=== PATIENT | female | born 1950 | race Caucasian/White ===

== ENCOUNTER 2022-03-19 09:28 | Outpatient (REF) | payer OTHER, SELFPAY ==
[2022-03-19 09:42] LABS: MANUAL DIFF FLAG NO
[2022-03-19 10:16] LABS: Basophils Absolute Auto 0.1 X10*3/uL (0.0-0.2); Basophils Percent Auto 1.1 % (0-2); Eosinophils Absolute Auto 0.3 X10*3/uL (0.0-0.4); Eosinophils Percent Auto 4.5 % (0-4); Hematocrit 38.5 % (37.0-47.0); Hemoglobin 12.3 g/dl (12.0-16.0); Imm Gran Abs Auto 0.02 X10*3/uL (0.00-0.03); Imm Gran Pct Auto 0.3 % (0.0-0.4); Lymphocytes Absolute Auto 2.2 X10*3/uL (1.2-4.9); Lymphocytes Percent Auto 34.2 % (20-40); Mean Corpuscular HGB Conc 31.9 g/dl (31.0-35.0); Mean Corpuscular Hemoglobin 29.7 pg (27.0-33.0); Mean Platelet Volume 9.3 fL (9.4-12.3); Monocytes Absolute Auto 0.6 X10*3/uL (0.1-1.2); Monocytes Percent Auto 8.9 % (2-11); Neutrophils Absolute Auto 3.3 x10*3/uL (2.0-8.3); Platelet Count 320 X10*3/uL (160-400); Red Blood Count 4.14 X10*6/uL (4.20-5.50); Red Cell Distribution Width 12.9 % (11.0-16.0); White Blood Count 6.4 X10*3/uL (4.8-10.8)
[2022-03-19 10:49] LABS: Alanine Aminotransferase 30 U/L (0-31); Albumin Level 4.4 g/dL (3.5-5.0); Alkaline Phosphatase 134 U/L (39-117); Anion Gap 10 (12-20); Aspartate Amino Transferase 19 U/L (5-31); Bilirubin Total 0.4 mg/dL (0.0-1.0); Blood Urea Nitrogen 9 mg/dL (9-16); Calcium 9.7 mg/dL (8.4-10.2); Carbon Dioxide 30 mmol/L (22-29); Chloride 107 mmol/L (96-108); Cholesterol 227 mg/dL; Estimated Glomerular Filt Rate > 60; Glucose Random 94 mg/dL (60-115); HDL Cholesterol 69 mg/dL; LDL Cholesterol Calculated 131 mg/dl; Potassium 4.9 mmol/L (3.3-5.1); Sodium 142 mmol/L (135-145); Total Protein 6.7 g/dL (6.5-8.0); Triglycerides 139 mg/dL; Uric Acid 6.2 mg/dL (2.4-5.7)
[2022-03-19 10:57] LABS: Free T4 (Free Thyroxine) 1.06 ng/dL (0.71-1.85); Thyroid Stimulating Hormone 0.31 uIU/mL (0.32-4.0); Vitamin D 25-OH Total 45.4 ng/mL (>30)
[2022-03-19 11:30] LABS: Folate 11.7 ng/mL (> or = 4.0); Vitamin B12 746 pg/mL (200-900)
[2022-03-19 11:59] LABS: Appearance Urine CLEAR; Color Urine YELLOW; Glucose Urine UA NEG (NEG); Leukocyte Esterase Urine TRACE (NEG); Nitrite Urine NEG (NEG); Urine Blood NEG (NEG); Urine Ketones NEG (NEG); Urine Protein NEG (NEG-TRACE)
[2022-03-19 13:24] LABS: RBC Urine 0-2 /HPF (0); Renal Epithelial Cells Urine 2+ /LPF
== END 2022-03-19 09:29 | disposition home or self-care (01) ==
LOC: HO.LAB 09:28
PROVIDERS: PCP Internal Medicine; Visit Provider Internal Medicine
DX: E03.9 Hypothyroidism, unspecified (principal); M10.9 Gout, unspecified; K21.9 Gastro-esophageal reflux disease without esophagitis; E78.00 Pure hypercholesterolemia, unspecified
CPT/HCPCS: 36415; 80053; 80061; 81001; 82306; 82607; 82746; 84439; 84443; 84550; 85025

== ENCOUNTER 2024-01-10 15:17 | Outpatient (AMB) | payer OTHER, SELFPAY ==
--- NOTE | 2024-01-10 15:18 | MHC.PC.OV ---
Intake Visit Reasons: Migraines Allergies acetaminophen [From Percocet] Adverse Reaction (Intermediate, Verified 01/10/24 15:19) Confusion oxycodone [From Percocet] Adverse Reaction (Intermediate, Verified 01/10/24 15:19) Confusion Medication List - Last Reconciled 01/10/24 by Phillip Sinha MD cholecalciferol (vitamin D3) 25 mcg PO DAILY esomeprazole magnesium 40 mg PO DAILY indomethacin 25 mg PO Q8H PRN levothyroxine 75 mcg PO DAILY 90 days promethazine 25 mg PO Q6H PRN 90 days simvastatin 40 mg PO DAILY sumatriptan succinate (Imitrex) 50 mg PO .QD PRN Tobacco use date assessed: 01/10/24 Dental Screening Dental Screen Date: 01/10/24 HPI Migraines HPI Details 73-year-old overweight female with GERD hypercholesterolemia hypothyroid gout comes in for follow-up through Telehealth. Patient complains of migraines and has taken Fioricet before but this time insurance is have stopped paying for them and is here for follow-up. Discussed with the patient that she has had no blood work since the last time seen and that is more than a couple of years and with her medications for thyroid cholesterol needs blood work. Otherwise she has been doing fine she complains of not being able to sleep but discussed with the patient have the blood work done [address] [place] [address] Medical History (Updated 01/10/24 @ 15:37 by Phillip Sinha MD) Hypothyroid Hypercholesterolemia GERD (gastroesophageal reflux disease) Surgical History (Updated 03/13/22 @ 11:47 by Phillip Sinha MD) Cataract Social History (Updated 03/13/22 @ 11:48 by Phillip Sinha MD) Housing: House Alcohol intake: current Patient Tobacco Use Status: Never used Tobacco e-Cigarette/Vaping Use: Never Used Second Hand Smoke Exposure: No Current occupational status: retired Cognitive needs: No Hearing needs: No Vision needs: Yes Questionnaire Thrive Questionnaire Date Thrive assessed: 03/13/22 AUDIT C Alcohol Use Questionnaire (AUDIT-C) 1. How often do you have a drink containing alcohol?: 4 or more times a week 2. How many drinks containing alcohol do you have on a typical day when you are drinking?: 1 or 2 3. How often do you have six or more drinks on one occasion?: Never Total Score: 4 RESHMA-7 AMB Questionnaire RESHMA-7 Date RESHMA - 7 assessed: 03/13/22 Source: Developed by Drs. Kale Cooper, Ellie Yarbrough, Choco Forman and colleagues, with an educational nba from [employer]. Physical exam (Primary Care) Tobacco/Smoking Status: Tobacco use Status Tobacco use date assessed 01/10/24 01/10/24 15:19 Patient Tobacco Use Status Never used Tobacco 01/10/24 15:19 e-Cigarette/Vaping Use Never Used 01/10/24 15:19 Thrive Assessment: Date of Thrive Assessment Date Thrive assessed 03/13/22 01/10/24 15:19 Telehealth Telehealth Location of provider rendering services: practice address Location of patient: address on file Patient Identification confirmed using: Name, : Yes Telehealth method: voice only (android ) Patient verbally consented to treatment: Yes Patient verbally consented to billing insurance company: Yes Patient informed of any privacy concerns related to visit: Yes Minutes spent on Phone/Video with Pt.: 25 Assessment and Plan Assessment & Plan (1) Hypothyroid: Code(s): E03.9 - Hypothyroidism, unspecified Plan: Patient was reminded about blood work for thyroid (2) Hypercholesterolemia: Code(s): E78.00 - Pure hypercholesterolemia, unspecified Plan: Avoid fried foods, chicken skin, eggs, butter margarine, pastries and meat. Be it pork or beef they have a lot of cholesterol on simvastatin patient is reminded about blood work (3) GERD (gastroesophageal reflux disease): Code(s): K21.9 - Gastro-esophageal reflux disease without esophagitis Plan: Avoid the foods that causes that usually spicy foods, tomato products, juices, coffee, soda and foods that your sensitive to. After eating do not lie down, allow 3-4 hours before in lie down. And keep the head of bed above 30 degrees to avoid the acid from going up. (4) Migraine: Code(s): G43.909 - Migraine, unspecified, not intractable, without status migrainosus Plan: Keep well hydrated, have enough sleep and keep active Orders: Orders Complete Blood Count Auto Diff Today E78.00 - Pure hypercholesterolemia, unspecified Free T4 (Free Thyroxine) Today E78.00 - Pure hypercholesterolemia, unspecified Thyroid Stimulating Hormone Today E78.00 - Pure hypercholesterolemia, unspecified Vitamin B12 and Folate Today E78.00 - Pure hypercholesterolemia, unspecified UA CC w/rflx Micro + Cult Today E78.00 - Pure hypercholesterolemia, unspecified, R30.0 - Dysuria Comprehensive Met. Panel Today E78.00 - Pure hypercholesterolemia, unspecified Vitamin D 25-OH Total Today E78.00 - Pure hypercholesterolemia, unspecified Lipid Panel Today E78.00 - Pure hypercholesterolemia, unspecified Medications: New sumatriptan succinate (Imitrex) do not exceed 4 doses per 24 hrs 50 mg PO .QD PRN 30 tabs 3RF migraine headache G43.909 - Migraine, unspecified, not intractable, without status migrainosus Coding Level of Care Code Tele Est Pt Level 4 (76256) Diagnoses Hypothyroid E03.9 Hypercholesterolemia E78.00 GERD (gastroesophageal reflux disease) K21.9 Migraine G43.909
== END 2024-01-10 16:31 | disposition home or self-care (01) ==
LOC: HO.HMGH 15:17
PROVIDERS: PCP Internal Medicine; Visit Provider Internal Medicine
DX: E03.9 Hypothyroidism, unspecified (principal); E78.00 Pure hypercholesterolemia, unspecified; K21.9 Gastro-esophageal reflux disease without esophagitis; G43.909 Migraine, unspecified, not intractable, without status migrainosus
CPT/HCPCS: 99214

== ENCOUNTER 2024-01-14 08:00 | Outpatient (REF) | payer OTHER, SELFPAY ==
[2024-01-14 08:20] LABS: MANUAL DIFF FLAG NO
[2024-01-14 08:29] LABS: Basophils Percent Auto 0.7 % (0-2); Eosinophils Absolute Auto 0.3 X10*3/uL (0.0-0.4); Eosinophils Percent Auto 4.6 % (0-4); Hematocrit 39.7 % (37.0-47.0); Hemoglobin 13.2 g/dl (12.0-16.0); Imm Gran Abs Auto 0.03 X10*3/uL (0.00-0.03); Imm Gran Pct Auto 0.5 % (0.0-0.4); Lymphocytes Absolute Auto 2.3 X10*3/uL (1.2-4.9); Lymphocytes Percent Auto 38.1 % (20-40); Mean Corpuscular HGB Conc 33.2 g/dl (31.0-35.0); Mean Corpuscular Hemoglobin 31.1 pg (27.0-33.0); Mean Corpuscular Volume 93.6 fL (80.0-98.0); Mean Platelet Volume 8.5 fL (9.4-12.3); Monocytes Absolute Auto 0.5 X10*3/uL (0.1-1.2); Monocytes Percent Auto 8.1 % (2-11); Neutrophils Absolute Auto 2.9 x10*3/uL (2.0-8.3); Platelet Count 325 X10*3/uL (160-400); Red Blood Count 4.24 X10*6/uL (4.20-5.50); Red Cell Distribution Width 12.8 % (11.0-16.0); White Blood Count 6.1 X10*3/uL (4.8-10.8)
[2024-01-14 09:12] LABS: Alanine Aminotransferase 13 U/L (0-31); Albumin Level 4.6 g/dL (3.5-5.0); Alkaline Phosphatase 111 U/L (39-117); Anion Gap 13 (12-20); Aspartate Amino Transferase 15 U/L (5-31); Bilirubin Total 0.5 mg/dL (0.0-1.0); Blood Urea Nitrogen 10 mg/dL (9-16); Calcium 9.8 mg/dL (8.4-10.2); Carbon Dioxide 30 mmol/L (22-29); Chloride 105 mmol/L (96-108); Cholesterol 239 mg/dL (<200); Estimated Glomerular Filt Rate > 60; Glucose Random 98 mg/dL (60-115); HDL Cholesterol 93 mg/dL (>40); LDL Cholesterol Calculated 127 mg/dL (<100); Potassium 4.5 mmol/L (3.3-5.1); Sodium 143 mmol/L (135-145); Total Protein 7.1 g/dL (6.5-8.0); Triglycerides 95 mg/dL (<150)
[2024-01-14 09:20] LABS: Free T4 (Free Thyroxine) 0.87 ng/dL (0.71-1.85); Vitamin D 25-OH Total 46.7 ng/mL (>30)
[2024-01-14 09:43] LABS: Appearance Urine Clear; Color Urine Yellow; Glucose Urine UA Negative (Negative); Leukocyte Esterase Urine Trace (Negative); Nitrite Urine Negative (Negative); PH 5.5 (5.0-9.0); Specific Gravity - Urine 1.015 (1.005-1.025); UMIC TRIGGER UACC YES; Urine Blood Trace (Negative); Urine Ketones Negative (Negative); Urine Protein Negative (Neg-Trace)
[2024-01-14 09:49] LABS: Bacteria Urine None Seen (None Seen); Hyaline Casts Urine 0-2 /LPF (0-2); RBC Urine 0-2 /HPF (0-2); Squamous Epithelial Cell Urine 0-2 /HPF (0-2); WBC Urine 0-5 /HPF (0-5)
[2024-01-14 11:12] LABS: Vitamin B12 521 pg/mL (200-900)
== END 2024-01-14 08:01 | disposition home or self-care (01) ==
LOC: HO.LAB 08:00
PROVIDERS: PCP Internal Medicine; Visit Provider Internal Medicine
DX: E78.00 Pure hypercholesterolemia, unspecified (principal)
CPT/HCPCS: 36415; 80053; 80061; 81001; 82306; 82607; 82746; 84439; 84443; 85025

== ENCOUNTER 2024-04-29 08:02 | Outpatient (AMB) | payer OTHER, SELFPAY ==
[2024-04-29 08:15] VITALS: BP 130/78; PULSE 68; O2SAT 98; BMI 25.9
--- NOTE | 2024-04-29 08:15 | A.OFFPC_ITS ---
Vital Signs 04/29/24 08:15 Height 4 ft 10 in Weight 124 lb 0.1 oz BMI 25.9 BP 130/78 Blood Pressure Location Lt brachial Position Sitting Pulse 68 Pulse Source Pulse Oximeter Pulse Oximetry (%) 98 Oxygen Delivery Method Room Air Intake Visit Reasons: medication follow up [employer] Required: No Allergies acetaminophen [From Percocet] Adverse Reaction (Intermediate, Verified 04/29/24 08:15) Confusion oxycodone [From Percocet] Adverse Reaction (Intermediate, Verified 04/29/24 08:15) Confusion Medication List - Last Reconciled 04/29/24 by Phillip Sinha MD cholecalciferol (vitamin D3) 25 mcg PO DAILY esomeprazole magnesium 40 mg PO DAILY indomethacin 25 mg PO Q8H PRN levothyroxine 75 mcg PO DAILY 90 days promethazine 25 mg PO Q6H PRN 90 days simvastatin 40 mg PO DAILY Tobacco use date assessed: 01/10/24 Fall risk assessment: No Falls in past year Last assessed Fall Risk: 04/29/24 Dental Screening Dental Screen Date: 04/29/24 Did you have a dental visit in the last 12 months?: No Did you have a dental problem in the last 6 months where you did not have access to dental care?: No HPI medication follow up HPI Details 73-year-old female with hypothyroid hype rcholesterolemia GERD migraine coming in for follow-up. Last seen in 01/22/2024. [facility] But declined mammogram. Noted weight loss [facility] Medical History (Updated 01/10/24 @ 15:37 by Phillip Sinha MD) Hypothyroid Hypercholesterolemia GERD (gastroesophageal reflux disease) Surgical History (Updated 03/13/22 @ 11:47 by Phillip Sinha MD) Cataract Social History (Updated 03/13/22 @ 11:48 by Phillip Sniha MD) Housing: House Alcohol intake: current Patient Tobacco Use Status: Never used Tobacco e-Cigarette/Vaping Use: Never Used Second Hand Smoke Exposure: No Current occupational status: retired Cognitive needs: No Hearing needs: No Vision needs: Yes Questionnaire PHQ-9 Over the last 2 weeks, how often have you been bothered by any of the following problems? 1. Little interest or pleasure in doing things: not at all 2. Feeling down, depressed, or hopeless: not at all 3. Trouble falling or staying asleep, or sleeping too much: not at all 4. Feeling tired or having little energy: not at all 5. Poor appetite or overeating: not at all 6. Feeling bad about yourself - or that you are a failure or have let yourself or your family down: not at all 7. Trouble concentrating on things, such as reading the newspaper or watching television: not at all 8. Moving or speaking so slowly that other people could have noticed. Or the opposite - being so fidgety or restless that you have been moving around a lot more than usual: not at all 9. Thoughts that you would be better off or of hurting yourself in some way: not at all Total score: 0 Depression Screening Interpretation: Negative Depression Screening Done: Yes 59432 - PHQ-9 Billing: Yes Source: Developed by Drs. Kale Cooper, Ellie Yarbrough, Choco Forman and colleagues, with an educational nba from [employer]. Thrive Questionnaire Date Thrive assessed: 04/29/24 I am a: Patient What is your living situation today?: I have a steady place to live Within the past 12 months, did the food you bought not last and you didn't have the money to get more?: Never true Within the past 12 months, did you worry whether your food would run out before you got money to buy more?: Never true Do you have trouble paying for medicines?: No Do you have trouble getting transportation to medical appointments?: No Do you have trouble paying your heating and electricity bill?: No Do you have trouble taking care of your child, family member or friend?: No Do you have trouble with day-to-day activities such as bathing, preparing meals, shopping, managing finances, etc.?: No Are you currently unemployed and looking for a job?: No Are you interested in more education?: No Please select the resources that you would like help with: None Currently or been in a relationship where the following occur: no concerns reported THRIVE Score: 0 AUDIT C Alcohol Use Questionnaire (AUDIT-C) 1. How often do you have a drink containing alcohol?: 4 or more times a week 2. How many drinks containing alcohol do you have on a typical day when you are drinking?: 1 or 2 3. How often do you have six or more drinks on one occasion?: Never Total Score: 4 RESHMA-7 AMB Questionnaire RESHMA-7 Date RESHMA - 7 assessed: 04/29/24 Feeling nervous, anxious, or on edge: 0 = Not at all Not being able to stop or control worryin = Not at all Worrying too much about different things: 0 = Not at all Trouble relaxin = Not at all Being so restless that it is hard to sit still: 0 = Not at all Becoming easily annoyed or irritable: 0 = Not at all Feeling afraid as if something awful might happen: 0 = Not at all Total RESHMA-7 score (0-4 normal; 5-9 mild; 10-14 moderate; 15-21 severe): 0 Source: Developed by Drs. Kale Cooper, Ellie Yarbrough, Choco Forman and colleagues, with an educational nba from [employer]. RESHMA-7 Assessment Billing RESHMA-7 Assessment Tool: RESHMA-7 Assessment 02734 Physical exam (Primary Care) Vital Signs: Last Vital Signs Pulse 68 04/29/24 08:15 BP 130/78 04/29/24 08:15 Pulse Ox 98 04/29/24 08:15 Oxygen Delivery Method Room Air 04/29/24 08:15 BMI result Body Mass Index 25.9 Tobacco/Smoking Status: Tobacco use Status Tobacco use date assessed 01/10/24 04/29/24 08:16 Patient Tobacco Use Status Never used Tobacco 04/29/24 08:16 e-Cigarette/Vaping Use Never Used 04/29/24 08:16 PHQ-9: PHQ-9 Score PHQ-9: Total score 0 04/29/24 08:26 Depression Screening Interpretation: Negative Thrive Assessment: Date of Thrive Assessment Date Thrive assessed 04/29/24 04/29/24 08:16 Currently or been in a relationship where the following occur: no concerns reported Const General: alert; No acute distress Eyes Conjunctivae: conjunctivae normal Resp Auscultation: clear to auscultation bilaterally Cardio Rate: regular rate Rhythm: regular rhythm GI Inspection: Yes normal to inspection Extrem General: Yes normal to inspection and No edema Assessment and Plan Assessment & Plan (1) GERD (gastroesophageal reflux disease): Code(s): K21.9 - Gastro-esophageal reflux disease without esophagitis Plan: Avoid the foods that causes that usually spicy foods, tomato products, juices, coffee, soda and foods that your sensitive to. After eating do not lie down, allow 3-4 hours before in lie down. And keep the head of bed above 30 degrees to avoid the acid from going up. Presently on Nexium (2) Hypercholesterolemia: Code(s): E78.00 - Pure hypercholesterolemia, unspecified Plan: Avoid fried foods, chicken skin, eggs, butter margarine, pastries and meat. Be it pork or beef they have a lot of cholesterol on simvastatin 40 mg once a day noted weight loss LDL goal of less than 130 and triglyceride of less than 150. (3) Hypothyroid: Code(s): E03.9 - Hypothyroidism, unspecified Plan: Continue with thyroid medication 75 mcg once a day 01/22/2024 last blood work (4) Gout: Code(s): M10.9 - Gout, unspecified Plan: Low purine diet keep well hydrated on indomethacin 25 mg 3 times a day as needed (5) Migraine: Code(s): G43.909 - Migraine, unspecified, not intractable, without status migrainosus Plan: Stable. Patient is advised to eat healthy, keep well hydrated, keep active and have adequate sleep. Medications: New simvastatin 40 mg PO DAILY 90 tabs 1RF E78.00 - Pure hypercholesterolemia, unspecified [id number] 50-325-40 mg 1 tab PO Q6H PRN 10 tabs 0RF pain G43.909 - Migraine, unspecified, not intractable, without status migrainosus Coding Level of Care Code Est Pt Level 4 (29617) Diagnoses GERD (gastroesophageal reflux disease) K21.9 Hypercholesterolemia E78.00 Hypothyroid E03.9 Gout M10.9 Migraine G43.909 Additional Codes RESHMA-7 Assessment Billing - RESHMA-7 Assessment Tool: RESHMA-7 Assessment 00956 ([id number])
== END 2024-04-29 11:21 | disposition home or self-care (01) ==
PROVIDERS: PCP Internal Medicine; Visit Provider Internal Medicine
DX: K21.9 Gastro-esophageal reflux disease without esophagitis (principal); E78.00 Pure hypercholesterolemia, unspecified; E03.9 Hypothyroidism, unspecified; M10.9 Gout, unspecified; G43.909 Migraine, unspecified, not intractable, without status migrainosus
CPT/HCPCS: 99214

== ENCOUNTER 2025-10-19 08:50 | Outpatient (AMB) | payer OTHER, MEDICAID, SELFPAY ==
--- NOTE | 2025-10-19 09:01 | A.OFFPC_ITS ---
Vital Signs 10/19/25 09:02 Height 4 ft 10 in Weight 133 lb 4 oz BMI 27.8 BP 128/72 Blood Pressure Location Lt brachial Position Sitting Pulse 70 Pulse Source Pulse Oximeter Temp 96.9 F Temp Source Temporal Artery Scan Pulse Oximetry (%) 97 Oxygen Delivery Method Room Air Intake Visit Reasons: annual exam Intake Note: Patient is here today for a physical. 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: No Dynamite Shooter: Not Required per policy Accompanied by: Self / Same As Patient Allergies acetaminophen (From Percocet) Adverse Reaction (Intermediate, Verified 10/19/25 09:02) Confusion oxycodone (From Percocet) Adverse Reaction (Intermediate, Verified 10/19/25 09:02) Confusion Medication List - Last Reconciled 10/19/25 by Phillip Sinha MD uvwlbofgec-tvwhgzfcjvnay-scix 50-325-40 mg 1 tab PO Q6H PRN cholecalciferol (vitamin D3) 25 mcg PO DAILY esomeprazole magnesium 40 mg PO DAILY indomethacin 25 mg PO Q8H PRN levothyroxine 75 mcg PO DAILY 90 days promethazine 25 mg PO Q6H PRN 90 days simvastatin 40 mg PO DAILY Tobacco use date assessed: 10/19/25 Fall risk assessment: No Falls in past year Last assessed Fall Risk: 10/19/25 Dental Screening Dental Screen Date: 10/19/25 Did you have a dental visit in the last 12 months?: No Did you have a dental problem in the last 6 months where you did not have access to dental care?: No Was dental information given to patient?: No (No teeth) HPI HPI Comments History of Present Illness Details History of Present Illness The patient is a 75-year-old female presenting for an annual physical exam. Her last visit was in April of the previous year. Her medical history is significant for gastroesophageal reflux disease, hypothyroidism, hypercholesterolemia, gout, and migraines. The patient is overweight and reports a 9-pound weight gain since her last visit, weighing 124 pounds last year. Regarding her feet, the patient reports pain, particularly in one foot, and has a history of surgery in [place] for hammer toes where her toes were crawling. She states that indomethacin no longer works for her foot pain, which she believes is due to the deformity. She has a history of gout, which previously presented with significant swelling in one foot. The patient's last blood work was last year and showed normal blood sugar, liver function, and high HDL cholesterol. Her current medications include vitamin D, esomeprazole (Nexium), indomethacin as needed for pain, promethazine as needed for nausea, simvastatin 40 mg for cholesterol, levothyroxine 75 mcg for her thyroid, and butalbital for migraines. She reports no heartburn with esomeprazole and takes promethazine and butalbital infrequently. She has a history of confusion with oxycodone. For health maintenance, her last FIT test for colon cancer screening was in 2021, and she declines mammograms. Her last eye exam was five to six years ago after cataract surgery. She reports she is due for a tetanus shot, with the last one in 2012, and has not had pneumonia or flu vaccines. The patient reports difficulty sleeping, often getting only two hours a night, and sometimes uses Benadryl to help her sleep. She wakes up a few times a night to urinate, which she attributes to drinking a lot of water. Health Maintenance - Screening: Last FIT test was in 2021; a Cologuard test will be ordered to be sent to her home. - Screening: Patient declined a mammogra m. - Vaccinations: Discussed flu vaccine (d eclined), shingles vaccine (will consider), and noted she is due for tetanus and pneumonia shots. - Labs: A comprehensive blood panel was ordered, including a complete blood count, kidney and liver function tests, blood sugar, thyroid levels, cholesterol, vitamin B12, and vitamin D. - Eye Exam: Advised that an eye exam is recommended every couple of years; patient's last exam was 5-6 years ago. - Lifestyle: Advised on the importance o f hydration, healthy eating, and a daily routine of exercise. - Diet: Recommended a low-purine diet fo r gout. - Alcohol: Counseled on new, stricter gu idelines for alcohol consumption, noting a link between alcohol and memory issues. - Sleep Hygiene: Advised aiming for 7 ho urs of sleep per night and to limit fluid intake a couple of hours before bed to avoid nocturia. Social History - Alcohol Use: Reports drinking one beer every other night or when she feels like it, such as while watching a movie. - Tobacco Use: Denies ever smoking cigar ettes. - Recreational Drugs: Denies use of recr eational drugs. - Exercise: Reports being busy with work all day rather than having a formal exercise routine. - Sleep: Reports not sleeping much, alison bojorquez getting only two hours a night, and states she cannot get seven hours of sleep. Results - Labs (from last year): Blood sugar was normal. - Labs (from last year): Liver function was normal. - Labs (from last year): Cholesterol hector el showed high HDL. - Screening Tests: Last FIT test was in 2021. [facility] Medical History (Updated 10/19/25 @ 09:33 by Phillip Sinha MD) Hypothyroid Hypercholesterolemia GERD (gastroesophageal reflux disease) Surgical History (Updated 10/19/25 @ 09:06 by January Mohamud Cristofer) History of tooth extraction Cataract Social History (Updated 10/19/25 @ 09:23 by Phlilip Sinha MD) Housing: House Alcohol intake: current Comment: QOD 1 beer Patient Tobacco Use Status: Never used Tobacco e-Cigarette/Vaping Use: Never Used Second Hand Smoke Exposure: No service: No Current occupational status: retired Cognitive needs: No Hearing needs: No Vision needs: Yes Questionnaire PHQ-9 Over the last 2 weeks, how often have you been bothered by any of the following problems? 1. Little interest or pleasure in doing things: not at all 2. Feeling down, depressed, or hopeless: not at all 3. Trouble falling or staying asleep, or sleeping too much: not at all 4. Feeling tired or having little energy: not at all 5. Poor appetite or overeating: not at all 6. Feeling bad about yourself - or that you are a failure or have let yourself or your family down: not at all 7. Trouble concentrating on things, such as reading the newspaper or watching television: not at all 8. Moving or speaking so slowly that other people could have noticed. Or the opposite - being so fidgety or restless that you have been moving around a lot more than usual: not at all 9. Thoughts that you would be better off or of hurting yourself in some way: not at all Total score: 0 Depression Screening Interpretation: Negative Depression Screening Done: Yes Source: Developed by Drs. Kale Cooper, Ellie Yarbrough, Choco Forman and colleagues, with an educational nba from [employer]. Thrive Questionnaire Date Thrive assessed: 10/19/25 I am a: Patient What is your living situation today?: I have a steady place to live Within the past 12 months, did the food you bought not last and you didn't have the money to get more?: I choose not to answer this question Within the past 12 months, did you worry whether your food would run out before you got money to buy more?: I choose not to answer this question Do you have trouble paying for medicines?: No Do you have trouble getting transportation to medical appointments?: No Do you have trouble paying your heating and electricity bill?: No Do you have trouble taking care of your child, family member or friend?: No Do you have trouble with day-to-day activities such as bathing, preparing meals, shopping, managing finances, etc.?: No Are you currently unemployed and looking for a job?: No Are you interested in more education?: No Please select the resources that you would like help with: None Currently or been in a relationship where the following occur: I choose not to answer THRIVE Score: 0 AUDIT C Alcohol Use Questionnaire (AUDIT-C) 1. How often do you have a drink containing alcohol?: Never Total Score: 0 RESHMA-7 AMB Questionnaire RESHMA-7 Date RESHMA - 7 assessed: 10/19/25 Feeling nervous, anxious, or on edge: 0 = Not at all Not being able to stop or control worryin = Not at all Worrying too much about different things: 0 = Not at all Trouble relaxin = Not at all Being so restless that it is hard to sit still: 0 = Not at all Becoming easily annoyed or irritable: 0 = Not at all Feeling afraid as if something awful might happen: 0 = Not at all Total RESHMA-7 score (0-4 normal; 5-9 mild; 10-14 moderate; 15-21 severe): 0 Source: Developed by Drs. Kale Cooper, Ellie Yarbrough, Choco Forman and colleagues, with an educational nba from [employer]. Review of Systems Narrative Review of Systems - General: Reports weight gain. - Eyes: Vision is okay, but requires glasses for up-close viewing. - Ears: Hearing is fine. - Cardiovascular: Denies chest pain or discomfort, but reports occasional funny feeling in the chest associated with nausea. - Respiratory: Denies coughing or waking up short of breath. - Gastrointestinal: Denies heartburn on esomeprazole, nausea, vomiting, problems with swallowing, constipation, blood in stools, or black stools. - Genitourinary: Denies problems with urination but reports nocturia due to high water intake. - Musculoskeletal: Reports pain in both feet, especially one, which is currently hurting. - Neurological: Reports a history of migraines. - Neurological: Denies passing out or feeling dizzy. - Constitutional: Denies fever. Const Denies poor appetite and Denies weakness Eyes Denies no additional complaints ENT Reports Normal hearing present, Denies dizziness, Denies nasal congestion, Denies tinnitus and Denies sore throat Card Denies chest pain, Denies syncope, Denies rapid heart rate and Denies dyspnea Resp Denies cough and Denies dyspnea GI Denies change in stool character, Reports constipation, Denies diarrhea, Denies nausea and Denies vomiting Denies urinary frequency, Denies difficulty voiding and Denies dysuria Neuro Reports Normal hearing present, Denies confusion, Denies dizziness, Denies syncope and Denies weakness Psych Denies confusion Physical exam (Primary Care) Vital Signs: Last Vital Signs Temp 96.9 F 10/19/25 09:02 Pulse 70 10/19/25 09:02 BP 128/72 10/19/25 09:02 Pulse Ox 97 10/19/25 09:02 Oxygen Delivery Method Room Air 10/19/25 09:02 BMI result Body Mass Index 27.8 Tobacco/Smoking Status: Tobacco use Status Tobacco use date assessed 10/19/25 10/19/25 09:07 Patient Tobacco Use Status Never used Tobacco 10/19/25 09:23 e-Cigarette/Vaping Use Never Used 10/19/25 09:23 PHQ-9: PHQ-9 Score PHQ-9: Total score 0 10/19/25 09:13 Depression Screening Interpretation: Negative Thrive Assessment: Date of Thrive Assessment Date Thrive assessed 10/19/25 10/19/25 09:07 Currently or been in a relationship where the following occur: I choose not to answer Narrative Physical Exam General: Cooperative, healthy appearing, comfortable, no acute distress and well developed Orientation: Patient oriented x3 Limitations: No limitations Head: Normal to inspection Ears: Hearing grossly normal bilaterally, right ear blocked with earwax Nose: Normal external nose present Face and sinus: Normal facial exam Eyes: Appearance normal, both eyes and all related structures Neck: Normal visual inspection and Yes full ROM Respiratory: Normal respiratory effort and able to speak in complete sentences. Clear to auscultation bilaterally Cardiovascular: Regular rate and rhythm. Normal S1 and S2 GI: Normal to inspection. Soft to palpation and nontender Skin: No rashes or lesions noted Neuro: Patient oriented x3 Extremities: Normal to inspection, both feet have pain, especially the toes due to previous surgery for hammer toe deformity Const General: No confusion Orientation/consciousness: No confusion HENMT Other: R ear impacted cerumen, L TM intact Head: Yes normocephalic Ears: external ears normal Face and sinus: Yes normal facial exam Mouth: moist mucous membranes Throat: Yes tonsils normal Eyes Conjunctivae: conjunctivae normal Pupils: Equal, round and reactive pupils present and Pupil accommodation reflex normal Direct Ophthalmoscopy: normal light reflex Neck Neck: No lymphadenopathy Thyroid: Thyroid normal Chest Chest palpation & inspection: normal inspection of the chest Resp Effort & Inspection: normal respiratory effort and no audible wheezes Auscultation: clear to auscultation bilaterally, no crackles, no wheezes and lung sounds not diminished Cardio Rate: regular rate Rhythm: regular rhythm Peripheral pulses: radial pulses present and dorsalis pedis present GI Palpation (GI): no masses Auscultation: normal bowel sounds and normoactive bowel sounds Rectal Exam - Female: deferred Skin General skin exam: no rashes or lesions noted Rashes: no rashes Neuro General: No confusion Cranial nerves: Yes Equal, round and reactive pupils present and Yes Normal hearing present Cognition (Neuro): normal cognition Gait exam (Neuro): Normal gait present Motor exam (neuro): 5/5 motor strength present throughout Deep tendon reflexes (DTR's): Right brachioradialis reflex intensity grade: 2+, Left brachioradialis reflex intensity grade: 2+, Right patellar reflex intensity grade: 2+ and Left patellar reflex intensity grade: 2+ Extrem General: No edema Coding Level of Care Code Est Pt Prev Care >65y(63401) Diagnoses Annual physical exam Z00.00 Overweight (BMI 25.0-29.9) E66.3 Hypothyroid E03.9 GERD (gastroesophageal reflux disease) K21.9 Gout M10.9 Migraine G43.909 Hypercholesterolemia E78.00 Foot pain, bilateral M79.671; M79.672 Colon cancer screening Z12.11 Mammogram declined Z53.20 Impacted cerumen of right ear H61.21 Assessment & Plan Assessment & Plan (1) Annual physical exam: Code(s): Z00.00 - Encounter for general adult medical examination without abnormal findings Category: Medical Plan: Patient is advised to eat healthy, keep well hydrated, keep active and have adequate sleep. (2) Overweight (BMI 25.0-29.9): Code(s): E66.3 - Overweight Category: Medical Plan: Diet and exercise (3) Hypothyroid: Code(s): E03.9 - Hypothyroidism, unspecified Category: Medical Plan: Continue with thyroid medication but patient requires blood work (4) GERD (gastroesophageal reflux disease): Code(s): K21.9 - Gastro-esophageal reflux disease without esophagitis Category: Medical Plan: Avoid the foods that causes that usually spicy foods, tomato products, juices, coffee, soda and foods that your sensitive to. After eating do not lie down, allow 3-4 hours before in lie down. And keep the head of bed above 30 degrees to avoid the acid from going up. (5) Gout: Code(s): M10.9 - Gout, unspecified Category: Medical Plan: Low purine diet as well as keep well hydrated (6) Migraine: Code(s): G43.909 - Migraine, unspecified, not intractable, without status migrainosus Category: Medical Plan: Patient is advised to eat healthy, keep well hydrated, keep active and have adequate sleep. (7) Hypercholesterolemia: Code(s): E78.00 - Pure hypercholesterolemia, unspecified Category: Medical Plan: Avoid fried foods, chicken skin, eggs, butter margarine, pastries and meat. Be it pork or beef they have a lot of cholesterol on simvastatin 40 mg once a day LDL goal of less than 130 and triglyceride of less than 150. (8) Foot pain, bilateral: Code(s): M79.671 - Pain in right foot; M79.672 - Pain in left foot Category: Medical (9) Colon cancer screening: Code(s): Z12.11 - Encounter for screening for malignant neoplasm of colon Category: Medical (10) Mammogram declined: Code(s): Z53.20 - Procedure and treatment not carried out because of patient's decision for unspecified reasons Category: Medical (11) Impacted cerumen of right ear: Code(s): H61.21 - Impacted cerumen, right ear Category: Medical Plan Plan Patient was informed and verbally consented to the use of an ambient scribe for clinic note documentation during this visit. 1. Annual Physical Examination The patient presents for a wellness visit. A comprehensive blood panel including CBC, CMP, lipid panel, thyroid function tests, vitamin B12, and vitamin D has been ordered. A Cologuard test will be sent to the patient's home for colon cancer screening. Vaccinations for tetanus, pneumonia, influenza, and shingles were discussed; the patient declined the flu shot and will consider the shingles vaccine. The patient declined a mammogram. Counseling was provided on diet, exercise, hydration, sleep hygiene, and new alcohol consumption guidelines. 2. Overweight The patient has gained 9 pounds since her last visit. She was encouraged to incorporate a daily exercise routine and was counseled on the importance of healthy eating and hydration for wellness and weight management. 3. Hypothyroidism The patient will continue her current thyroid medication. Thyroid function will be assessed with the ordered blood work. 4. Hypercholesterolemia The patient will continue simvastatin 40 mg daily, with a goal LDL of less than 130 mg/dL and triglycerides of less than 150 mg/dL. Her cholesterol levels will be monitored via the ordered blood work. 5. Gastroesophageal Reflux Disease The patient is well-controlled on esomeprazole and denies heartburn. She will continue her current medication. 6. Gout The patient was counseled to follow a low-purine diet and maintain good hydration to help manage her gout. 7. Foot Deformity The patient reports foot pain secondary to a toe deformity (hammer toe), with a history of prior surgery. A referral to podiatry will be placed to evaluate her condition and discuss treatment options. 8. Impacted Cerumen The patient has impacted cerumen in the right ear. It was recommended she use ppkr-gsc-hcoyznf ear drops, such as Debrox, to soften the earwax. If her symptoms become problematic, she should return for ear irrigation. Discussion Notes I discussed the annual physical exam findings with the patient. We reviewed her weight gain and the importance of establishing a daily exercise routine in addition to her work activities. I placed an order for comprehensive blood work to monitor her chronic conditions, including hypothyroidism and hypercholesterolemia, and confirmed she could have it drawn today. We discussed her foot pain and toe deformity, and I will be placing a referral to podiatry for further evaluation. I noted impacted cerumen in her right ear and recommended pjjh-jgl-rfpykqg Debrox drops to soften the wax, advising her to return for flushing if it becomes bothersome. We discussed health maintenance, and I ordered a Cologuard test to be sent to her home since her last screening was in 2021. She declined a mammogram. We also reviewed her vaccine status, and I informed her she is due for tetanus and pneumonia shots and discussed the availability of the flu and shingles vaccines. I counseled her on improving sleep hygiene by aiming for 7 hours of sleep and limiting fluids before bed. I also educated her on the new, stricter guidelines for alcohol consumption. I assured her that her prescriptions are likely on automatic refill at her pharmacy, and I will follow up with her if any significant abnormalities are found in her blood work. Patient Instructions - You can go to the lab to get your blood work done today. - Continue taking your current medications as prescribed, including those for thyroid, cholesterol, and reflux. - A Cologuard kit for colon cancer screening will be mailed to your house. - For your foot problem, we will send a referral to a non destructive testing specialist (roller mill operator) to see how they can help. - For the wax buildup in your right ear, you can buy qicc-opf-aritnhg ear drops like Debrox to help soften it. - If your ear becomes a problem and you have trouble hearing, please let us know. - Try to set aside time each day for exercise, such as walking. - Continue to drink plenty of water and eat a healthy diet. - For your gout, try to eat a low-purine diet. - Try to get about 7 hours of sleep each night and avoid drinking liquids for a couple of hours before you go to bed. - We discussed vaccines that you are due for, including tetanus and pneumonia, and also the optional flu and shingles shots. - We will call you if there are any major issues with your lab results. Orders: Orders Comprehensive Met. Panel Today E03.9 - Hypothyroidism, unspecified Thyroid Stimulating Hormone Today E03.9 - Hypothyroidism, unspecified UA CC w/rflx Micro + Cult Today E03.9 - Hypothyroidism, unspecified, R30.0 - Dysuria Complete Blood Count Auto Diff Today E03.9 - Hypothyroidism, unspecified Free T4 (Free Thyroxine) Today E03.9 - Hypothyroidism, unspecified Vitamin B12 and Folate Today E03.9 - Hypothyroidism, unspecified Vitamin D 25-OH Total Today E03.9 - Hypothyroidism, unspecified Lipid Panel Today E03.9 - Hypothyroidism, unspecified, E78.00 - Pure hypercholesterolemia, unspecified Magnesium Today E03.9 - Hypothyroidism, unspecified Referrals Podiatry Referral M79.671 - Pain in right foot, M79.672 - Pain in left foot Cologuard Test Z12.11 - Encounter for screening for malignant neoplasm of colon
[2025-10-19 09:02] VITALS: BP 128/72; PULSE 70; TEMP 36.1; O2SAT 97; BMI 27.8
--- OUTSIDE RECORDS SUMMARY | 2025-10-19 09:41 | XMS_ITS | Patient Health Record ---
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
== END 2025-10-19 10:05 | disposition home or self-care (01) ==
LOC: HO.HMCH 08:51
PROVIDERS: PCP Internal Medicine; Visit Provider Internal Medicine
DX: Z00.00 Encounter for general adult medical examination without abnormal findings (principal); E66.3 Overweight; E03.9 Hypothyroidism, unspecified; K21.9 Gastro-esophageal reflux disease without esophagitis; M10.9 Gout, unspecified; G43.909 Migraine, unspecified, not intractable, without status migrainosus; E78.00 Pure hypercholesterolemia, unspecified; M79.671 Pain in right foot; M79.672 Pain in left foot; Z12.11 Encounter for screening for malignant neoplasm of colon; Z53.20 Procedure and treatment not carried out because of patient's decision for unspecified reasons; H61.21 Impacted cerumen, right ear

== ENCOUNTER 2025-10-19 08:50 | Outpatient (REF) | payer OTHER, MEDICAID, SELFPAY ==
[2025-10-19 10:00] LABS: MANUAL DIFF FLAG NO
[2025-10-19 10:21] LABS: Hematocrit 37.5 % (37.0-47.0); Hemoglobin 12.1 g/dl (12.0-16.0); Imm Gran Abs Auto 0.04 X10*3/uL (0.00-0.03); Imm Gran Pct Auto 0.8 % (0.0-0.4); Lymphocytes Absolute Auto 1.5 X10*3/uL (1.2-4.9); Mean Corpuscular HGB Conc 32.3 g/dl (31.0-35.0); Mean Corpuscular Hemoglobin 29.6 pg (27.0-33.0); Mean Corpuscular Volume 91.7 fL (80.0-98.0); NRBC Abs Auto 0.000 X10*3/uL (0.0-0.012); NRBC Pct Auto 0.0 /100WBC (0.0-0.2); Platelet Count 306 X10*3/uL (160-400); Red Blood Count 4.09 X10*6/uL (4.20-5.50); White Blood Count 5.0 X10*3/uL (4.8-10.8)
[2025-10-19 10:43] LABS: Appearance Urine Clear; Glucose Urine UA Negative (Negative); PH 6.0 (5.0-9.0); Specific Gravity - Urine 1.015 (1.005-1.025)
[2025-10-19 10:53] LABS: Alanine Aminotransferase 20 U/L (0-31); Albumin Level 4.8 g/dL (3.5-5.0); Alkaline Phosphatase 111 U/L (39-117); Anion Gap 13 (12-20); Aspartate Amino Transferase 23 U/L (5-31); Blood Urea Nitrogen 10 mg/dL (9-16); Calcium 9.7 mg/dL (8.4-10.2); Carbon Dioxide 28 mmol/L (22-29); Chloride 106 mmol/L (96-108); Cholesterol 223 mg/dL (<200); Estimated Glomerular Filt Rate > 60; HDL Cholesterol 93 mg/dL (>40); Magnesium 2.2 mg/dL (1.6-2.6); Potassium 4.4 mmol/L (3.3-5.1); Sodium 143 mmol/L (135-145); Total Protein 6.9 g/dL (6.5-8.0); Triglycerides 85 mg/dL (<150)
[2025-10-19 11:14] LABS: Free T4 (Free Thyroxine) 1.06 ng/dL (0.71-1.85); Thyroid Stimulating Hormone 0.96 uIU/mL (0.32-4.0)
[2025-10-19 11:20] LABS: Folate 9.4 ng/mL (> or = 4.0); Vitamin B12 436 pg/mL (200-900)
== END 2025-10-19 08:51 | disposition home or self-care (01) ==
LOC: HO.LAB 08:50
PROVIDERS: PCP Internal Medicine; Visit Provider Internal Medicine
DX: Z00.00 Encounter for general adult medical examination without abnormal findings (principal); Z12.11 Encounter for screening for malignant neoplasm of colon; R30.0 Dysuria; E03.9 Hypothyroidism, unspecified; E78.00 Pure hypercholesterolemia, unspecified; E66.3 Overweight; K21.9 Gastro-esophageal reflux disease without esophagitis; M10.9 Gout, unspecified; G43.909 Migraine, unspecified, not intractable, without status migrainosus; M79.671 Pain in right foot; M79.672 Pain in left foot; H61.21 Impacted cerumen, right ear; Z79.890 Hormone replacement therapy; Z79.899 Other long term (current) drug therapy; Z53.20 Procedure and treatment not carried out because of patient's decision for unspecified reasons; Z68.27 Body mass index [BMI] 27.0-27.9, adult
CPT/HCPCS: 36415; 80053; 80061; 81003; 82306; 82607; 82746; 83735; 84439; 84443; 85025; 96127